=== PATIENT | male | born 1970 | race Caucasian/White ===

== ENCOUNTER → 2018-11-04 | Outpatient (CLI) | payer BC ==
[2018-11-04 16:02] LABS: BASO # 0.1 (0.0-0.2); BASO % 0.8 % (0.0-2.0); EOS # 0.3 (0.0-0.7); EOS % 3.2 % (0-4.0); GRAN # 4.9 (1.4-6.5); GRAN % 58.2 % (42.2-75.2); HEMATOCRIT 47.6 % (42.0-52.0); LYMPH # 2.6 (1.2-3.4); LYMPH % 30.7 % (20.0-51.0); MEAN CELL VOLUME 86 fl (80.0-100.0); MEAN CORPUSCULAR HEMOGLOBIN 29 pg (27.0-31.0); MEAN CORPUSCULAR HGB CONC 34 g/dl (33.0-37.0); MEAN PLATELET VOLUME 11.3 fl (7.4-10.4); MONO # 0.6 (0.1-0.6); MONO % 6.9 % (1.7-9.3); PLATELET COUNT 269 K/mm3 (130-400); RED BLOOD COUNT 5.53 M/mm3 (4.20-5.60); REDCELL DISTRIBUTION WIDTH-CV 12.7 % (11.5-14.5)
== END ==
LOC: ZCOL.LAB 15:11
PROVIDERS: Family Medicine
DX: E11.9 Type 2 diabetes mellitus without complications (principal)

== ENCOUNTER → 2019-09-03 | Outpatient (CLI) | payer BC | LOC: COL.CARD 09:26 | DX: R56.9 Unspecified convulsions (principal) ==

== ENCOUNTER 2020-03-14 09:08 | Outpatient (CLI) | payer BC ==
[~2020-03-14] VITALS: Ht 182.9 cm; Wt 124.0 kg
[2020-03-14 09:54] VITALS: BP 107/69; PULSE 75; TEMP 98.5
[2020-03-14] MEDS ORDERED: PROTONIX 40MG T40 MG PO (10:10)
[2020-03-14] MEDS ORDERED: D3-5050000 IU PO (10:11)
[2020-03-14] MEDS ORDERED: PROAIR HFA0.09 MG/AC IH (10:12)
[2020-03-14] MEDS ORDERED: ALBUTEROL0.83 MG/ML IH (10:13)
[2020-03-14] MEDS ORDERED: VITAMIN B COMPL1 SGL PO (10:14)
[2020-03-14] MEDS ORDERED: MULTIPLE VITAMI1 CAP PO (10:15)
[2020-03-14] MEDS ORDERED: ASPIRIN 81M81 MG/TA2 PO (10:15)
[2020-03-14] MEDS ORDERED: EPA FISH OIL1 SGL PO (10:16)
[2020-03-14] MEDS ORDERED: CYMBALTA 60MG60 MG PO (10:17)
[2020-03-14] MEDS ORDERED: ZOCOR 20MG20 MG PO (10:18)
[2020-03-14] MEDS ORDERED: DIOVAN 80MG80 MG PO (10:19)
[2020-03-14] MEDS ORDERED: GLUCOPHAGE1000 MG PO (10:19)
[2020-03-14] MEDS ORDERED: GLUCOPHAGE500 MG/TAB PO (10:20)
[2020-03-14] MEDS ORDERED: BELSOMRA10 MG PO (10:21)
[2020-03-14] MEDS ORDERED: TOPROL XL 25MG25 MG PO (10:22)
[2020-03-14] MEDS ORDERED: COLLAGEN PO (10:24)
[2020-03-14] MEDS ORDERED: CEPHALEXIN500 M1 PO (11:06)
--- NOTE | 2020-03-14 11:20 | NUR ---
Discharge instructions given to pt.pt verbalizes understanding.Pt escorte dout by this nurse.
[2020-03-14 11:21] VITALS: BP 128/83; PULSE 83
== END 2020-03-14 11:21 | disposition home or self-care (01) ==
LOC: COL.CAR 09:08
DX: I47.1 Supraventricular tachycardia (principal); Z88.8 Allergy status to other drugs, medicaments and biological substances

== ENCOUNTER → 2021-08-24 | Outpatient (CLI) | payer OTHER ==
[~2021-08-24] MED LIST: ALBUTEROL0.83 MG/ML IH; ASPIRIN 81M81 MG/TA2 PO; BELSOMRA10 MG PO; CEPHALEXIN500 M1 PO; COLLAGEN PO; CYMBALTA 60MG60 MG PO; D3-5050000 IU PO; DIOVAN 80MG80 MG PO; EPA FISH OIL1 SGL PO; GLUCOPHAGE1000 MG PO; GLUCOPHAGE500 MG/TAB PO; MULTIPLE VITAMI1 CAP PO; PROAIR HFA0.09 MG/AC IH; PROTONIX 40MG T40 MG PO; TOPROL XL 25MG25 MG PO; VITAMIN B COMPL1 SGL PO; ZOCOR 20MG20 MG PO
--- NOTE | 2021-08-24 13:29 | NUR ---
PATIENT HAD CAFFINE AND HAD TAKEN INHALERS. WILL NEED TO RESCHEDULE. PATIENT GIVEN PAMPHLET AND EXPLAINED PREP INSTRUCTIONS.
== END ==
LOC: COL.PUL 11:25
DX: M51.36 Other intervertebral disc degeneration, lumbar region (principal); Z98.1 Arthrodesis status; Z98.890 Other specified postprocedural states

== ENCOUNTER 2022-03-18 13:12 | Emergency (ER) | payer BC ==
[~2022-03-18] VITALS: Ht 182.9 cm; Wt 120.5 kg
[2022-03-18 14:26] LABS: BASO # 0.1 K/mm3 (0.0-0.2); BASO % 0.6 % (0.0-2.0); EOS # 0.3 K/mm3 (0.0-0.7); EOS % 2.4 % (0.0-4.0); GRAN # 8.1 K/mm3 (1.4-6.5); GRAN % 62.7 % (42.2-75.2); HEMOGLOBIN 14.9 g/dl (13.5-18.0); LYMPH # 3.5 K/mm3 (1.2-3.4); LYMPH % 27.2 % (20.0-51.0); MEAN CELL VOLUME 87 fl (80.0-100.0); MEAN CORPUSCULAR HEMOGLOBIN 29 pg (27-31); MEAN CORPUSCULAR HGB CONC 33 g/dl (33.0-37.0); MEAN PLATELET VOLUME 10.9 fl (7.4-10.4); MONO # 0.9 K/mm3 (0.1-0.6); MONO % 6.8 % (1.7-9.3); PLATELET COUNT 329 K/mm3 (130-400); RED BLOOD COUNT 5.16 M/mm3 (4.20-5.60); REDCELL DISTRIBUTION WIDTH-CV 13.2 % (11.5-14.5)
[2022-03-18 14:45] LABS: ALANINE AMINOTRANSFERASE 24 U/L (0-55); ALBUMIN 3.9 gm/dL (3.5-5.0); ALKALINE PHOSPHATASE 65 U/L (40-150); ANION GAP 13 mmol/L (7-16); AST,SGOT 13 U/L (5-34); BILIRUBIN,TOTAL 0.7 mg/dL (0.2-1.2); BLOOD UREA NITROGEN 10 mg/dL (8-26); CALCIUM 9.2 mg/dL (8.4-10.2); CARBON DIOXIDE 22 mmol/L (22-29); CHLORIDE 104 mmol/L (98-107); CREATININE, serum 0.76 mg/dL (0.72-1.25); GLUCOSE 171 mg/dL (70-99); POTASSIUM 4.3 mmol/L (3.5-4.5); SODIUM 139 mmol/L (136-145); TOTAL PROTEIN 6.8 gm/dL (6.2-8.1)
[2022-03-18 14:53] LABS: TROPONIN-I < 0.010 ng/mL (0.00-0.033)
[2022-03-18] MEDS ORDERED: NORCO 325 MG-51 TAB PO ×3 (16:16→16:26)
[2022-03-18 17:17] VITALS: BP 150/93; PULSE 92; TEMP 97.9
== END 2022-03-18 17:17 | disposition home or self-care (01) ==
LOC: COL.ER 13:12
PROVIDERS: Nurse Practitioner
DX: S22.32XA Fracture of one rib, left side, initial encounter for closed fracture (principal); E66.9 Obesity, unspecified; Z87.891 Personal history of nicotine dependence; Z28.310 Unvaccinated for COVID-19; Z68.36 Body mass index [BMI] 36.0-36.9, adult; X58.XXXA Exposure to other specified factors, initial encounter
CPT/HCPCS: J2270; J2405

== ENCOUNTER → 2022-05-02 | Outpatient (CLI) | payer BC ==
[~2022-05-02] MED LIST changes: +NORCO 325 MG-51 TAB PO
== END ==
LOC: COL.PUL 07:31
DX: J45.998 Other asthma (principal)

== ENCOUNTER → 2023-02-01 | Outpatient (CLI) | payer BC | LOC: COL.RAD 14:41 | DX: S22.49XG Multiple fractures of ribs, unspecified side, subsequent encounter for fracture with delayed healing (principal); K76.0 Fatty (change of) liver, not elsewhere classified; I25.10 Atherosclerotic heart disease of native coronary artery without angina pectoris; X58.XXXD Exposure to other specified factors, subsequent encounter ==

== ENCOUNTER 2024-05-28 06:54 | Day surgery (SDC) | payer BC ==
[~2024-05-28] VITALS: Ht 182.9 cm; Wt 127.7 kg
[~2024-05-28 06:54] MED LIST changes: +CRESTOR40 MG PO; -ZOCOR 20MG20 MG PO
[2024-05-28] MEDS ORDERED: TESSALON PERLE200 MG PO (08:11)
[2024-05-28] MEDS ORDERED: ZYRTEC 10MG10 MG PO (08:14)
[2024-05-28] MEDS ORDERED: LOFIBRA134 MG PO (08:15)
[2024-05-28] MEDS ORDERED: NEURONTIN300 MG/CAP PO (08:16)
[2024-05-28] MEDS ORDERED: SINGULAIR 110 MG/TAB PO (08:24)
[2024-05-28] MEDS ORDERED: MAGNESIUM200 MG PO (08:25)
[2024-05-28] MEDS ORDERED: ADVIL200 MG PO (08:25)
[2024-05-28] MEDS ORDERED: GLUCOTROL XL10 MG PO (08:26)
[2024-05-28] MEDS ORDERED: ACTOS30 MG PO (08:29)
[2024-05-28] MEDS ORDERED: VIAGRA50 M1 PO (08:30)
[2024-05-28] MEDS ORDERED: RT ADVAIR 128 DISKUS IH (08:31)
[2024-05-28 08:34] VITALS: BP 161/106; PULSE 86; TEMP 97.3
--- NOTE | 2024-05-28 08:58 | NUR ---
Pt to procedure,Report to CASEY Salazar.
[2024-05-28 09:16] VITALS: BP 146/96; PULSE 89
[2024-05-28] MEDS ORDERED: ceFAZolin 2 G in Water For Injection,Sterile 20 ML IV SCH (09:19)
[2024-05-28] MEDS ORDERED: Midazolam 2 MG/2 ML VIAL IV SCH (09:20)
--- NOTE | 2024-05-28 09:21 | NUR ---
See [facility]ge reportf for procedural sedation/notes
[2024-05-28] MEDS ORDERED: fentaNYL 50 MCG/ML 2 ML VIAL IV SCH (09:22)
[2024-05-28 09:39] VITALS: BP 142/90; PULSE 93
--- NOTE | 2024-05-28 09:43 | NUR ---
Pt back to [facility] - bedside handoff performed with CASEY Palma: vitals initiated and stable, AOx4, dressing site stable
[2024-05-28 09:45] VITALS: BP 148/85; PULSE 90
[2024-05-28 10:00] VITALS: BP 132/85; PULSE 89
[2024-05-28 10:15] VITALS: BP 144/94; PULSE 92
--- NOTE | 2024-05-28 10:21 | NUR ---
Discharge instructions given to pt.Pt verbalizes understanding.
--- NOTE | 2024-05-28 10:32 | NUR ---
Pt escorted out via wheelchair by this nurse.
== END 2024-05-28 10:43 | disposition home or self-care (01) ==
LOC: COL.CAR 06:54
DX: Z95.818 Presence of other cardiac implants and grafts (principal); I47.10 Supraventricular tachycardia, unspecified; E78.5 Hyperlipidemia, unspecified; I10 Essential (primary) hypertension; I35.0 Nonrheumatic aortic (valve) stenosis; F17.210 Nicotine dependence, cigarettes, uncomplicated; Z79.899 Other long term (current) drug therapy
CPT/HCPCS: J0688; J0690; J2250; J3010